=== PATIENT | male | born 2000 | race Caucasian/White ===

== ENCOUNTER 2021-10-27 06:15 | Observation (INO) ==
--- NOTE | 2021-10-21 11:10 | Anesthesiology Consultation ---
Date of Service October 21, 2021 Assessment & Plan (1) Encounter for pre-operative examination: Chart Review Chart Review: Acceptable Risk for Surgery (pending preop Covid testing results ) and Patient NOT seen in Pre Admission Testing Per nursing assessment 10/21/21, patient denies any recent travel. No known Covid positive exposures or Covid related symptoms. No known Covid infection in the past 90 days. Pt is NOT vaccinated for Covid. Preop Covid testing scheduled 10/23/21= will await results. History Surgery Operation Date: 10/27/21 09:50 Proposed Procedures p Lefort I Maxillary Advancement with a Sagittal Rotation and Slight Setback - Stephane Duncan DMD Height/Weight Height: 5 ft 10 in Weight: 79.832 kg Allergies Allergy/AdvReac Type Severity Reaction Status Date / Time No Known Allergies Allergy Verified 09/30/21 11:50 Medications Home Medications Medication Instructions Recorded Confirmed Last Taken No Known Home Medications 12/24/19 10/21/21 Unknown Past Medical History Medical History No known health problems Past Family History Family History Grandmother Breast cancer both paternal and maternal Grandfather (Paternal) No problems noted. Grandfather (Maternal) Cancer Past Surgical History Surgical History H/O wisdom tooth extraction 2018 Social History Smoking Status: Never smoker Do You Dip or Chew Tobacco: No Hx Alcohol Use: Yes ("A FEW MONTHS AGO") Hx Substance Use: No substance use type: does not use Lab Results Anesthesia Preop Results Results Anesthesia Widget: WBC 3.99 K/uL (4.8-10.8) L 09/30/21 Hgb 14.7 g/dL (14.0-18.0) 09/30/21 Hct 43.0 % (42-52) 09/30/21 Plt 195 K/uL (130-400) 09/30/21 PT 11.4 Seconds (9.0-12.0) 09/30/21 PTT 26.8 Seconds (21.0-31.0) 09/30/21 INR 1.1 (0.9-1.1) 09/30/21 Blood Type A Negative 09/30/21 Antibody Screen NEGATIVE 09/30/21
[~2021-10-27 06:15] MED LIST: LACTATED RINGER'S 1,000 ML IV SCH; LR 15ML/HR IV SCH; ceFAZolin 1000MG 1,000 MG/7.5 ML SYR IV SCH
[2021-10-27] MEDS ORDERED: fentaNYL citrate 100 MCG/2 ML VIAL ONE ×3 (07:47→14:59)
[2021-10-27] MEDS ORDERED: MIDAZOLAM HCL 1 MG/ML 2ML VIAL ONE (07:47)
[2021-10-27] MEDS ORDERED: ONDANSETRON INJ 2 MG/ML 2 ML VIAL IV PRN ×2 (07:48→15:29)
[2021-10-27] MEDS ORDERED: LABETALOL HCL IV 5 MG/ML 20ML IV PRN (07:48)
[2021-10-27] MEDS ORDERED: HYDROmorphone INJ 1 MG/ML SYRINGE IV PRN (07:48)
[2021-10-27] MEDS ORDERED: PHENYLEPHRINE 100MCG/ML 5ML SYR IV PRN (07:48)
[2021-10-27] MEDS ORDERED: ATROPINE SULFATE 0.1 MG/ML 10ML SYR IV PRN (07:48)
[2021-10-27] MEDS ORDERED: fentaNYL citrate 100 MCG/2 ML VIAL IV PRN (07:48)
[2021-10-27] MEDS ORDERED: MEPERIDINE HCL 25 MG/ML CARP/VIAL IV PRN (07:48)
[2021-10-27] MEDS ORDERED: ePHEDrine sulfate 50 MG/ML AMP IV PRN (07:48)
--- NOTE | 2021-10-27 08:21 | History & Physical Bridge Note ---
Date of Service October 27, 2021 History & Physical Bridge Note I have examined the patient, reviewed the History & Physical and in the interval since the performance of the History & Physical I have noted the following changes of clinical significance: no changes noted. COVID neg. OK for planned upper and lower jaw surgery Plan out patinet 23 hr observation tonight
[2021-10-27] MEDS ORDERED: STERILE IRRIGATING OPTH SOLUTION (BSS) 15ML ONE (08:27)
[2021-10-27] MEDS ORDERED: TRIAMCINOLONE ACET 0.1% OINT 15 GM TUBE ONE (08:27)
[2021-10-27] MEDS ORDERED: BUPIVACAINE/EPINEPHRINE 0.5% 1:200,000 1.8 ML CARP ONE ×2 (08:28→09:06)
[2021-10-27] MEDS ORDERED: CHLORHEXIDINE GLUCONATE 0.12% 480 ML ONE (08:28)
[2021-10-27] MEDS ORDERED: OXYMETAZOLINE 0.05% 30 ML BTL ONE (08:29)
[2021-10-27] MEDS ORDERED: DEXAMETHASONE SOD INJ 4 MG/ML VIAL ONE (09:15)
[2021-10-27] MEDS ORDERED: ONDANSETRON INJ 2 MG/ML 2 ML VIAL ONE ×2 (09:15→09:53)
[2021-10-27] MEDS ORDERED: PROPOFOL IV EMULSION 10 MG/ML 20 ML VIAL IV ONE (09:15)
[2021-10-27] MEDS ORDERED: LIDOCAINE 2% 2 ML VIAL/AMP(20MG/ML) INFIL ONE (09:15)
[2021-10-27] MEDS ORDERED: ROCURONIUM BROMIDE 10 MG/ML 5 ML VIAL IV ONE ×5 (09:52→12:58)
[2021-10-27] MEDS ORDERED: NEOSTIGMINE METHYLSULFATE 1 MG/ML 10ML VIAL ONE (09:52)
[2021-10-27] MEDS ORDERED: KETOROLAC 30 MG/ML VIAL ONE (09:53)
[2021-10-27] MEDS ORDERED: GLYCOPYRROLATE 0.2 MG/ML VIAL ONE ×3 (09:53→15:59)
[2021-10-27] MEDS ORDERED: ePHEDrine sulfate 50 MG/ML SYR ONE (10:23)
[2021-10-27] MEDS ORDERED: HYDROmorphone INJ 2 MG/ML SYR/VIAL ONE (10:50)
[2021-10-27] MEDS ORDERED: ACETAMINOPHEN 1000 MG/100 ML IV IV ONE (14:20)
[2021-10-27] MEDS ORDERED: ceFAZolin 1000MG 1,000 MG/7.5 ML SYR IV STA (14:58)
[2021-10-27] MEDS ORDERED: SUGAMMADEX SODIUM 200 MG/2 ML VIAL IV ONE (15:27)
[2021-10-27] MEDS ORDERED: SODIUM CHLORIDE 0.65% NA SOLN 45 ML (OCEAN) PRN (15:29)
[2021-10-27] MEDS ORDERED: MoRPHine SULFATE 4 MG/ML 1 ML CARP\\VIAL IV PRN (15:29)
[2021-10-27] MEDS ORDERED: MoRPHine SULFATE 2 MG/ML CARP IV PRN (15:29)
[2021-10-27] MEDS ORDERED: ACETAMINOPHEN/HYDROcodone ELIX 15 ML/CUP PO PRN ×2 (15:29)
[2021-10-27] MEDS ORDERED: OXYMETAZOLINE 0.05% 30 ML BTL PRN (15:29)
[2021-10-27] MEDS ORDERED: LORazepam 2 MG/1 ML VIAL IV PRN (15:29)
--- NOTE | 2021-10-27 16:08 | Operative Report ---
PG Post Operative Report Pre & Post Diagnosis Operation Date: 10/27/21 09:40 Pre-Op Diagnosis: Maxillary Hypoplasia, Mandibular Prognathism, Open Bite Deformity, Inability to Chew Foods Adequatley. Post-Op Diagnosis: Maxillary Hypoplasia, Mandibular Prognathism, Open Bite Deformity, Inability to Chew Foods Adequatley. 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 Post-Op Diagnosis: (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 Description of Procedure DESCRIPTION OF PROCEDURE: Bilateral sagittal split CPT 95852 LeFort I CPT 35998 Placement of surgical splint CPT 79845 Pre-Op Diagnosis: Maxillary Retrognathism, Mandibular Prognathism Post-Op Diagnosis: Maxillary Retrognathism, Mandibular Prognathism I identified the patient and participated in the time-out.: Yes Procedure Actual Procedures p Lefort I, Sagittal Splint Osteotomies(Not Applicable) - Stephane Duncan DMD mandibular/maxillary hypoplasia PG Post Operative Report Sagittal Split Osteotomy of Lower Jaw with Fixation LeFort I advancement upper jaw with fixation placement of surgical splint I identified the patient and participated in the time-out.: Yes Procedure DESCRIPTION OF PROCEDURE: Bilateral sagittal split CPT 81243 LeFort I CPT 30416 Placement of surgical splint CPT 04828 After this patient is cleared to undergo general anesthesia, she was brought down to the operating room and placed under General anesthesia via nasotracheal intubation. After adequate anesthesia was obtained, the patient was prepped and draped in the usual manner for a mandibularsagittal osteotomy and LeFort I advancement. The patient had a class III occlusion with deviation to the right and maxillary retrognathism. This was a complex deformity in 3 D. Atime out was taken for patient ID, antibiotics, equipment and position verification once all agreed the procedure began. After the facial area was draped with the appropriate sterile technique, local anesthesia was infiltrated into themandibular maxillary tissues to allow for hemostasis with local anesthetic effect. After an adequate period of time to allow for the hemostasis and local anesthetic effect, an oropharyngeal throat pack was placed, the oral cavity was irrigated and suctioned dried with Peridex mouth rinse. At this time, the appropriate time outs to verify the patient, position, type of surgery,antibiotics and equipment once everyone agreed we then started the operative procedure. Since that was a double jaw procedure the plan was to start with the lower jaw but not complete the cuts then complete the upper and then return to the lower for the completion of the bilateral sagittal splints. Right side sagittal split phase I Using an electrocautery instrument, an incision approximately 1.5 cm in length was made in the external oblique region on the right side. The tissue was reflected to expose the bone. Once the bone was reflected; I had good visualization of the inferior border of the mandible, the angle of the mandible, the lingual aspect of the mandible and the nerve as it entered the mandibular foramen. Now with a fiberoptic retractor I was able to hold the lingual tissue out of the way and had good visualization of the lingual cortical plate and the nerve entrance into the bone. With the large round marissa, I was able to remove the spinous processes of the external oblique ridge. Now using a reciprocating saw, an osteotomy was made parallel to the occlusion plane of the mandibular molar teeth approximately 1-2 mm above the nerve. I then used the spear point Da Silva marissa very carefully to make a trough in the external oblique ridge from the previously made osteotomy to an area between the 1st and 2nd molars. I now continued the osteotomy parallel to the long axis of the lower molarsinferiorly to the inferior border of the mandible, taking great care to avoid any trauma to the neurovascular bundle and to ensure that I cut through the cortical plate into the marrow vascular channel. The area was packed and the left side was now addressed. Left side sagittal split phase I Using an electrocautery instrument, an incision approximately 1.5 cm in length was made in the external oblique region on the right side. The tissue was reflected to expose the bone. Once the bone was reflected; I had good visualization of the inferior border of the mandible, the angle of the mandible, the lingual aspect of the mandible and the nerve as it entered the mandibular foramen. Now with a fiberoptic retractor I was able to hold the lingual tissue out of the way and had good visualization of the lingual cortical plate and the nerve entrance into the bone. With the large round marissa, I was able to remove the spinous processes of the external oblique ridge. Now using a reciprocating saw, an osteotomy was made parallel to the occlusion plane of the mandibular molar teeth approximately 1-2 mm above the nerve. I then used the spear point Da Silva marissa very carefully to make a trough in the external oblique ridge from the previously made osteotomy to an area between the 1st and 2nd molars. I now continued the osteotomy parallel to the long axis of the lower molarsinferiorly to the inferior border of the mandible, taking great care to avoid any trauma to the neurovascular bundle and to ensure that I cut through the cortical plate into the marrow vascular channel. The area was packed and I now turned my attention to the maxilla. LeFort I osteotomy: I turned my attention now to the maxilla. On the preoperative evaluation, the maxilla needed to be advanced 5 mm with a slight rotation to line up the midlines. To accomplish this, a Le Fort I maxillary osteotomy was carried out. An electrocautery instrument was used to make an incision from the 1st bicuspid area on the right side across the midline to the opposite bicuspid area. The tissues reflected in the usual manner to expose the mucoperiosteal tissue and to get good exposure of the anterior nasal spine, the roots of the maxillary anterior and posterior teeth and the piriform rim. Once this was reflected, I was able to then reflect posteriorly to get good access to the pterygoid plate areas. I then spent a lot of time dissecting around the nasal bones to ensure that we had good visualization of the floor of the nose and the piriform rims. At this time,the custom surgical guides were placed with an excellent fit. They were secured with small fixation screw, ensured that the cuts will be made to avoid any anatomic structures.Before starting the bone cuts since the bone plates were also custom made I pre-drilled the holes to be used later in the fixation process. It was noted that the bone was very thin and as a result the preformed plates were very high to gain strong bone for direct fixation. At this time, a retractor was placed intranasally and I made an osteotomy parallel to the occlusal plane from the piriform rim posteriorly to the tuberosity region. I then completed a similar osteotomy. on the left side of the maxilla. Once this was done, a curved osteotome was used to osteotomize the pterygoid plate from the tuberosity region of both right and left sides. A ball curved osteotome was used to osteotomize the medial olguin of the maxillary sinus. I now used a straight osteotome with a protective edge to osteotomize the nasal septal tissue. I now removed the surgical guides. Once this was done, I was able to reflect all the nasal mucoperiosteal tissue of the floor of the nose. By doing this, the maxilla was quite easily downfractured. The downfracture occurred without any problems.I was not able to preserve then neurovascular bundle posteriorly on the right side and left side they were cauterized to allow removal of bone to accommodate the advancement.With great deal of blunt and sharp dissection as well as removing a lot of bony interferences, I was able to make the maxilla very passive. I then irrigated the maxillary sinuses of any debris and/or polyps that were noted. Hemostasis was in good control. I made sure that the maxilla was quite passive. The preformed surgical appliance, the interim splint was applied to the mandible and the maxilla was easily seated into the split and the maxillary mandibular complex was then rotated superiorly. I noted that the maxilla was now positioned in its new position which was 5 mm from the previous position. The hemostasis was in control and all bony margins were passive. At this time, the maxillary mandibular complex was superiorly repositioned. Great care was taken to make sure that the condyles were well seated within the glenoid fossa. Being satisfied with this,I placed the preformed custom titanium fixation plates. The plates were passive and lined up with the previously made holes, I then used a titanium screw and obtained direct fixation by the 2 bone plates. Once this was accomplished, I now removed the fixation wires and the intermediate splint.I noted that the maxilla was extremely stable and the occlusion was reproducible.The maxilla was now stable and in ideal post surgical position I turned my attention to the mandible to complete the osteotomies. Splitting right side With the use of a bone airplane mechanic and a small osteotome, I was able to complete the sagittal split of the right mandibular ramus. Great care was taken to avoid any trauma to the neurovascular bundle. Due to the bony anatomy of the osteotomy, I did a lot of bone reduction to allow for the mandible to be passively positioned without any pressure on the nerve or pressure that could cause distortion of the mandibular condyle. Hemostasis was in excellent control. It was noted that there were few small bony interferences that trimmed with the use of rongeurs and rotary instrument. Once this was accomplished I packed the side with a gauze sponge to prevent any pressure on the nerve and to control bleeding. At this time, I turned my attention to the left side. Splitting left side with the use of a bone airplane mechanic and a small osteotome, I was able to complete the sagittal split of the left mandibular ramus. Great care was taken to avoid any trauma to the neurovascular bundle. Because of the thinness and shape of the bone, the nerve was adherent to the thin cortical bone and very high on the proximal fragment. seen. Due to the thickness and shape of the bone and the need to correct the lateral deviation this required a lot of careful bone removal Establishing the occlusion Because of the large lateral movement a lot more bone adjustment was needed to gain passive segment relationship. once the right and left sides were completely cut and the soft tissue was reflected to allow repositioning the final occlusal splint was applied to the mandible and the mandibular complex with the splint was easily rotated and held into position and stabilized with 25 gauge stainless steel wires to the maxilla. Once both sides were split and the segments were layingpassively over each other, the osteotomy site was then trimmed to ensure that there were no bony interferences. I irrigated the areas with normal saline, made sure that the neurovascular bundles were intact and positioned correctly that hemostasis was in excellent control. Applying Direct osseous fixation Right side--I used a small clasp, placed between the two fragments and noted that the fragments were seating extremely passively over each other. I did some further trimming to ensure that there was no pressure on the nerve and to ensure that the condyle was well seated. Being satisfied with this, I passed an 11 blade through the cheek, a trocar was placed and then 3 interosseous holes were placed above the neurovascular bundle, but below the external oblique ridge for direct osseous fixation of the right mandibular fragment. Left side--I used a small clasp, placed between the two fragments and noted that the fragments were seating extremely passively over each other. I did some further trimming to ensure that there was no pressure on the nerve and to ensure that the condyle waswell seated. Being satisfied with this, I passed an 11 bladethrough the cheek, a trocar was placed and then 3 interosseous holes were placed above the neurovascular bundle and 1 below but below the external oblique ridge for direct osseous fixation of the left mandibular fragment. I now checked both osteotomy sites and found them to be extremely stable. At this time, the temporary intermaxillary fixation was removed. The occlusion was extremely stable and reproducible. The patient had a good range of motion without clicks or pops or deviations. The sites were irrigated and checked for bleeding. I inspected the lingual aspects to make sure that the screws did not perforate the lingual cortical plate--were necessary the screws were adjusted to insure a flush fit. Closure lower I turned my attention first to the right side; with the use of a 4-0 Vicryl suture, I was able to suture the osteotomy site. Once this was accomplished, we turned our attention to the left side and a similar suturing technique was carried out. Using a 6-0 nylon suture 2 skin sutures in each cheek site was used to close the skin. Closure upper The nasal septum was trimmed to help prevent buckling--a small hole was placed in the ANS and a stay suture was used to secure the septum to the new midline. Before closure of the upper the area was irrigated, hemostasis was controlled. To ensure proper closure with good anatomical form, I was able to grasp the alar cartilages on both the right and left side and then using a 3-0 Mersilene suture, I was able to perform an alar cinch technique to ensure good positioning of the lateral alar cartilages of the nose and to establish good base anatomy of the nose. Once this was done, I made sure that the nasal septum was well positioned in the midline. Being satisfied with this, I then began the V-Y closure of the mucosal tissue starting in the midline and then closed laterally on either side to ensure an even contouring of the tissue. When all was said and done, we had excellent closure of the soft tissue with great support of the nose. 2 dental elastics were applied in the cupid areas to allow for functional elastic stability. I now placed a gauze pressure dressing on with an elastic pressure band around the face and a pressure dressing to the upper lip. Recovery The patient was allowed to recover in the usual manner. A check to insure all instrument and sponge count was correct was accomplished and verified the oral cavity was suctioned and Ipassed an oral gastric tube. When fully recovered, extubation occurred. All vital signs were extremely stable. Now the anesthesia department transferred the patient to the hospital litter to be taken to the recovery room. I am very pleased with the osteotomy sites, the positioning of the nerve, and the functional improvement that was gained by the osteotomy. ESTIMATED TIME OF OPERATION: Approximately 4.5 hours When I completedthe case I inspected the sites to insure all bleeding was controlled and the fixation was stable. I attest to the content of the Intraoperative Record and any orders documented therein. Any exceptions are noted below.
--- NOTE | 2021-10-27 16:15 | XRay Report ---
XR mandible <4V CLINICAL HISTORY: Status Post-Op Surgery AP Mandibular and Jaw View TECHNIQUE: 2 views of the mandible were obtained. Comparison: Comparison is made to CT maxillofacial 09/30/2021 FINDINGS: Postsurgical changes are seen in the maxilla. Orthodontic hardware is noted. IMPRESSION: Postsurgical changes in the maxilla without evidence of acute fracture. ACT 112: Negative or not required by law. Electronically signed by: Josesito Hi M.D. 10/27/2021 4:13 PM
[2021-10-27] MEDS ORDERED: LABETALOL HCL IV 5 MG/ML 20ML IV ONE (16:16)
--- NOTE | 2021-10-27 16:21 | Anesthesiology Progress Note ---
Date of Service October 27, 2021 Anesthesia Post Procedure Vital Signs Vital Signs: Temp Pulse Pulse Resp BP Pulse Ox 10/27/21 16:10 36.6 C 86 18 174/93 H 95 10/27/21 16:00 95 H 18 160/91 H 96 10/27/21 15:50 79 18 172/94 H 94 10/27/21 15:40 36.8 C 84 17 170/89 H 91 10/27/21 06:42 36.9 C 49 L 18 124/72 100 Transfer of Care Handoff Completed per policy Notes Mental Status: alert / awake / arousable Patient Amnestic to Procedure: Yes Nausea / Vomiting: adequately controlled Pain: adequately controlled Airway Patency, RR, SpO2: stable & adequate BP & HR: stable & adequate Hydration State: stable & adequate Anesthetic Complications: no major complications apparent and Pt Satisfied with anesthetic care Notes: The patient had a prolong procedure and was slow to wake up. He is awake now and has some jaw soreness but is otherwise doing well. He is hypertensive so will be given a dose of labetalol. His other vital signs are stable.
[2021-10-27] MEDS: KETOROLAC 30 MG/ML VIAL IV SCH ×2 (17:35→23:13)
--- NOTE | 2021-10-27 17:35 | Oral/Maxillofacial Progress Nt ---
Date of Service October 27, 2021 Assessment & Plan Admission and Anticipated Discharge Date Admission Date: October 27, 2021 Subjective Orthognathic surgery post op note at 5:30 pm day of surgery in Room 384-2 Tissue tone, gingival tissue--excellent Occlusion very stable and reproducible bite. No TMJ issues-pain, nose, pop. Reviewed use of functional elastics No nasal congestion, bleeding, septum well positioned. No sinus issues Facial alignment excellent Reviewed post op care--diet, oral care, use of elastics, activities. I will see Luke tomorrow and plan D/C Discussed care with parents VS stable. Have not taken fluids as of yet. Pain controlled. Swelling as expected Overall excellent result from recent OG surgery RTC for continued follow up Results & Data ([facility]) Vital Signs (Past 12 Hours) Vital Signs Temp Pulse Pulse Resp BP BP Pulse Ox 10/27/21 16:45 37.5 C 16 167/75 H 97 10/27/21 16:20 73 16 161/82 H 95 10/27/21 16:10 36.6 C 86 18 174/93 H 95 10/27/21 16:00 95 H 18 160/91 H 96 10/27/21 15:50 79 18 172/94 H 94 10/27/21 15:40 36.8 C 84 17 170/89 H 91 10/27/21 06:42 36.9 C 49 L 18 124/72 100 PG Care Time/CCT Total # of Minutes Spent Total Time Spent with Patient: Total time spent is greater than 50% in coordination of care (as documented) at patient's floor/unit and/or counseling patient: Coding Level of Care Code None
[2021-10-27] MEDS: dexAMETHasone 6 MG in SYRINGE 0 ML IV SCH ×2 (19:39→23:13)
[2021-10-27] MEDS ORDERED: SCOPOLAMINE 1 MG TDSY TD ONE (20:00)
[2021-10-27] MEDS: D5W AND 1/2NSS + 20MEQ KCL 20 MEQ/1,000 ML BAG IV SCH (20:37)
[2021-10-27] MEDS: CHECK SCOPOLAMINE PATCH PLACEMENT SCH ×2 (20:42→23:13)
[2021-10-27] MEDS: ceFAZolin 1000MG 1,000 MG/7.5 ML SYR IV SCH (20:44)
[2021-10-27] MEDS ORDERED: TRIAMCINOLONE ACET 0.1% OINT 15 GM TUBE EXT SCH (21:00)
[2021-10-27] MEDS: CHLORHEXIDINE GLUCONATE 0.12% 480 ML MT SCH (22:11)
[2021-10-28] MEDS: ceFAZolin 1000MG 1,000 MG/7.5 ML SYR IV SCH (03:20)
[2021-10-28] MEDS: D5W AND 1/2NSS + 20MEQ KCL 20 MEQ/1,000 ML BAG IV SCH (05:01)
[2021-10-28] MEDS: dexAMETHasone 6 MG in SYRINGE 0 ML IV SCH (05:03)
[2021-10-28] MEDS: KETOROLAC 30 MG/ML VIAL IV SCH (05:03)
[2021-10-28] MEDS: CHECK SCOPOLAMINE PATCH PLACEMENT SCH (07:54)
[2021-10-28] MEDS: CHLORHEXIDINE GLUCONATE 0.12% 480 ML MT SCH (07:54)
--- NOTE | 2021-10-28 10:07 | Oral/Maxillofacial Progress Nt ---
Date of Service October 28, 2021 Assessment & Plan Admission and Anticipated Discharge Date Admission Date: October 27, 2021 Subjective Doing very well this AM Occl stable, pain controlled, VS stable, PO improved encouraged to drink more. Reviewed home care with Father over the phone OK for D/C this afternoon once hid mother arrives. I will see Ryan November 04 for follow up care before the family goes on vacation at [facility] dental office to accommodate the family. Rx already at home Overall excellent result for a very difficult case. Results & Data ([facility]) Vital Signs (Past 12 Hours) Vital Signs Temp Pulse Pulse Resp BP BP Pulse Ox 10/28/21 09:02 36.9 C 60 16 144/70 H 97 10/28/21 03:26 37.5 C 65 18 154/70 H 98 10/27/21 22:44 38.0 C H 79 16 138/76 98 PG Care Time/CCT Total # of Minutes Spent Total Time Spent with Patient: Total time spent is greater than 50% in coordination of care (as documented) at patient's floor/unit and/or counseling patient: Coding Level of Care Code None
--- NOTE | 2021-11-11 12:03 | Discharge Summary ---
Date of Service October 28, 2021 Admission HPI Per Admitting Provider Orthognathic surgery Discharge note OCTOBER 28 2021 Had a maxillary and mandibular surgery October 27 Did extremely post op--was admitted for observation. I evaluated Ryan October 28--reviewed home care with parents, use of elastics and diet. Arrangements made for follow up Finding: Excellent result Sutures in place Tissue tone, gingival tissue--excellent Occlusion very stable and reproducible bite. No TMJ issues-pain, still somewhat limited opening secondary to the recent procedures Reviewed use of functional elastics No nasal congestion, bleeding, septum well positioned. No sinus issues Facial alignment excellent Reviewed post op care--diet, oral care, use of elastics, activities. 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 Some oozing or blood-tinged saliva may persist for up to 24 hours. Should excessive bleeding occur call the office or Dr. Duncan. Expect nasal oozing for a few days. This also will occur after getting up or after you shower. PAIN: Is best controlled by the medications recommended. They are most effective when taken before the local anesthesia diminishes and normal sensation returns to the area. Do not take pain pills on an empty stomach. Narcotic pain medication such as Vicodin or Percocet may cause nausea, vomiting, drowsiness, dizziness, itching or constipation. If these side effects occur, discontinue the medication. You may take an alternative over the counter pain medication (Tylenol or Motrin) as necessary or call our office for assistance. SWELLING: May occur immediately and increase gradually over 24-48 hours. Swelling from the surgical procedure will maximize at 48-72 hours. Ice packs applied externally to the area at 20 minute intervals throughout the day of surgery may help control swelling, but only use them if advised to by our office. Sleeping with the head of bed elevated above the level of the heart for the first two post-operative nights may tend to lessen swelling. NAUSEA: May result from a general anesthetic or the drugs prescribed for pain. Drinking a small glass of a carbonated beverage will generally control mild nausea. If not controlled, call the office. The Zofran ODT may be used as instructed. DIET: Soft foods and liquids will be required for 24-48 hours following surgery. Avoid hot, spicy foods. Do not smoke. Non-chewy foods are okay if you are using the elastic bands. Follow the instruction about what to eat and how to remove and replace your bands as instructed by Dr. Duncan. If your jaw is wired together -liquid diet ONLY. ORAL HYGIENE: Should not be neglected. [place] your teeth as usual and rinse with warm salt water after each meal beginning gently the night of surgery. Use Peridex twice a day. Other mouth rinses can be used to keep your mouth clean. ACTIVITY: Should be restricted to a minimum for the first 7 -10 days. Strenuous work or exercise may promote bleeding. If you have had a general anesthetic or sedation, we must require that you be accompanied home by a responsible adult and an adult stays with you until recovered from the effects of the anesthesia. Under no circumstances are you to drive a car for at least 24 hours. FEVER: After surgery it is normal for the body temperature to be slightly elevated for 24 hours. SIDE EFFECTS: Such as an ear ache, temporary ache of adjacent teeth, restricted mouth opening, stretching or cracking at the corners of the mouth or discoloration of the skin may occur postoperatively. These are temporary conditions that will improve as healing progresses. As a result of the surgery your bite will feel off, this is normal. Your lower and upper lip will also feel numb as a result of the surgery; over time this will subside. EMERGENCIES: In case of profuse bleeding, uncontrolled pain, persistent nausea or abnormal elevation of temperature, if you have any questions about these instructions or your surgery please call our office or Dr. Chavez cell phone. Our goal is to make this procedure as safe and pleasant as possible. Email Dr. [email or web address] Phone Dr. 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
== END 2021-10-28 11:20 | disposition home or self-care (01) ==
LOC: ASU 06:15 → 3N 06:15